=== PATIENT | male | born 1985 | race Two or more races ===

== ENCOUNTER 2020-11-25 12:03 | Emergency (ER) | payer SELFPAY ==
[~2020-11-25] VITALS: Ht 177.8 cm; Wt 77.1 kg
--- NOTE | 2020-11-25 12:41 | Emergency Room Report ---
History of Present Illness General Chief Complaint: Male Urogenital Problems Source: Patient Present Illness HPI Disclaimer: Please note that this report is being documented using DRAGON technology. This can lead to erroneous entry secondary to incorrect interpretation by the dictating instrument. HPI: 35-year-old male presents for evaluation of penile pain. Reports intermittent pain in his penis for a long time. He cannot quantify for how long. He denies discharge, swelling, trauma to the testicles or penis. Denies recent sexual intercourse. Denies prior treatment for STIs. Patient is very vague and requesting pain medication. He states "I want to keep discussing this with you. Just give me something for the pain." Denies abdominal pain, nausea or vomiting. Denies diarrhea. Denies other symptoms at this time. PMH: Did not provide any PSH: Did not provide any Allergies: Denied Social Hx: Substance abuse in the past Allergies: Coded Allergies: No Known Allergies (Unverified , 11/25/20) COVID-19 Screening Contact w/high risk pt: No Experienced COVID-19 symptoms?: No COVID-19 Testing performed PLANT TENDER: No Nursing Documentation-PMH Past Medical History: No Stated History Review of Systems All Other Systems: negative except mentioned in HPI Physical Exam Vital Signs Date Time Temp Pulse Resp B/P (MAP) Pulse Ox O2 Delivery O2 Flow Rate FiO2 11/25/20 12:30 98.2 109 20 138/74 (95) 97 Room Air General: Awake and alert, disheveled and unkempt, anxious appearing HEENT: NC/AT. EOMI. Resp: Normal work of breathing. Abdomen: Abdomen is soft, nondistended. Nontender : Uncircumcised male with easily retractable foreskin. No are mobile appearing glands, shaft and scrotum. No testicular swelling or tenderness. Testicles in anatomic position with positive bilateral cremasteric reflex. Skin: Intact. No abrasions, laceration or rash over the exposed skin MSK: Normal tone and bulk. Moving all extremities. No obvious deformity. Neuro: Awake and alert. Mentating appropriately. Medical Decision Making Diagnostic Impression: Primary Impression: Pain of male genitalia ER Course 35-year-old male presents complaining of penile pain. Appears to be a longstanding issue and the patient is vague and refusing to provide details. He is requesting pain medication. We will give him a Motrin here but otherwise I see no other signs of infection. Will refer to STD clinic for testing and t reatment though he does not want treatment at this time aside from pain medication. Stable for outpatient follow-up with STD clinic. Last Vital Signs Date Time Temp Pulse Resp B/P (MAP) Pulse Ox O2 Delivery O2 Flow Rate FiO2 11/25/20 12:30 98.2 109 20 138/74 (95) 97 Room Air Disposition: HOME, SELF-CARE Condition: Stable Referrals: [facility] *Patients are seen by appointment only* [facility] [place] Additional Instructions: Please follow-up with your primary care doctor in the next 1 to 3 days to discuss this emergency department visit and for reevaluation. If you have any new or worsening symptoms please return to the emergency department for reevaluation. Please follow-up with one of the clinics listed here in your discharge paperwork for STD testing including HIV, hepatitis, herpes virus, syphilis, chlamydia, gonorrhea among others. Refrain from sexual contact until you obtain these results. Notify all sexual partners of any positive results. Return to the emergency department new or worsening symptoms. Please follow-up with your primary care doctor in the next 1 to 3 days to discuss this emergency department visit and for reevaluation. If you have any new or worsening symptoms please return to the emergency department for reevaluation. Please note that this report is being documented using DRAGON technology. This can lead to erroneous entry secondary to incorrect interpretation by the dictating instrument. Please note that this report is being documented using DRAGON technology. This can lead to erroneous entry secondary to incorrect interpretation by the dictating instrument. Diego Raymundo MD Nov 25, 2020 12:41
[2020-11-25 13:00] VITALS: BP 130/62
== END 2020-11-25 13:00 | disposition home or self-care (01) ==
LOC: EMR 12:38
DX: N48.89 Other specified disorders of penis (principal); F19.11 Other psychoactive substance abuse, in remission
CPT/HCPCS: 99282